=== PATIENT | female | born 1960 | race American Indian/Alaskan Native ===

== ENCOUNTER 2016-08-11 16:15 | Emergency (ER) | payer SELFPAY ==
[2016-08-11 17:23] LABS: Basophils % (Auto) 0.5 % (0.0-1.8); Eosinophils % (Auto) 3.4 % (0.0-4.3); Hematocrit 39.3 % (30.3-42.9); Hemoglobin 12.6 gm/dl (10.1-14.3); Mean Corpuscular HGB Conc 32 % (30-34); Mean Corpuscular Hemoglobin 28 pg (28-32); Mean Corpuscular Volume 87 fl (79-97); Platelet Count 289 K/mm3 (140-440); Red Blood Count 4.51 M/mm3 (3.65-5.03); Red Cell Distribution Width 15.2 % (13.2-15.2); White Blood Count 5.8 K/mm3 (4.5-11.0)
[2016-08-11 17:39] LABS: BUN/Creatinine Ratio 8.75; Blood Urea Nitrogen 7 mg/dL (7-17); Carbon Dioxide 28 mmol/L (22-30); Glucose 69 mg/dL (65-100)
[2016-08-11 17:40] LABS: Anion Gap 16 mmol/L; Chloride 101.7 mmol/L (98-107); Potassium 3.9 mmol/L (3.6-5.0); Sodium 142 mmol/L (137-145)
[2016-08-11] MEDS ORDERED: NACL 0.9% 1000 ML 1,000 ML IV ONE (22:39)
[2016-08-11] MEDS ORDERED: MORPHINE IV ONE (22:40)
[2016-08-11] MEDS ORDERED: ZOFRAN IV ONE (22:40)
--- NOTE | 2016-08-11 23:14 | Cat Scan Report ---
FINAL REPORT EXAM: CT ABDOMEN PELVIS WO CON HISTORY: GALLSTONE OR KIDNEY STONE EVALUATION TECHNIQUE: CT images obtained through the Abdomen and Pelvis without contrast. Transaxial,coronal and sagittal reformats are provided. PRIORS: None. FINDINGS: Imaged intrathoracic contents are unremarkable. Right lower kidney nonobstructing 3 millimeter stone. Kidneys are normal in size, axis and position. No hydronephrosis or other nephrolithiasis. The ureters are normal in course and caliber. No stones are seen within the urinary bladder. The liver, gallbladder, pancreas, spleen, and adrenal glands demonstrate an unremarkable noncontrast appearance. Hollow enteric organs are normal in course and caliber. Appendix is normal in caliber and without surrounding edema or inflammatory stranding.. No intra-abdominal free air/fluid or lymphadenopathy. Aorta is normal in course and caliber. Anteverted uterus. Trace free fluid in the pelvis. Right adnexal 4 centimeter lesion with layering hyperdense material on axial series 2, image 298. Left-sided tubal ligation clip. Superficial soft tissues are unremarkable. No acute or aggressive appearing skeletal findings. IMPRESSION: No CT evidence of obstructive urolithiasis or other acute intra-abdominal findings.
[2016-08-11 23:48] LABS: Alanine Aminotransferase 22 units/L (7-56); Albumin 3.9 g/dL (3.9-5); Albumin/Globulin Ratio 1.2 %; Alkaline Phosphatase 74 units/L (35-129); Bilirubin,Total < 0.20 mg/dL (0.1-1.2); Lipase 21 units/L (13-60); Total Protein 7.2 g/dL (6.3-8.2)
[2016-08-11 23:49] LABS: Bilirubin,Direct < 0.2 mg/dL (0-0.2)
[2016-08-12] MEDS ORDERED: MORPHINE IM ONE (00:56)
[2016-08-12] MEDS ORDERED: ZOFRAN ODT PO ONE (00:56)
[2016-08-12] MEDS ORDERED: BENTYL IM ONE (01:07)
[2016-08-12] MEDS ORDERED: TORADOL IV ONE (01:07)
[2016-08-12 01:27] LABS: Bacteria,Urine 1+ /HPF (Negative); Bilirubin,Urine NEG (Negative); Blood,Urine NEG (Negative); Ketones,Urine NEG (Negative); Leukocyte Esterase,Urine TR (Negative); Mucus,Urine FEW /HPF; Nitrite,Urine NEG (Negative); Protein,Urine <15 mg/dL mg/dL (Negative); Urobilinogen,Urine < 2.0 mg/dL (<2.0)
[2016-08-12 01:57] VITALS: BP 95/51
--- NOTE | 2016-08-12 02:05 | Emergency Department Report ---
ED Abdominal Pain HPI - General Chief Complaint: Chest Pain Stated Complaint: RT SIDE PAIN Time Seen by Provider: 08/11/16 22:38 Source: patient Mode of arrival: Ambulatory Limitations: No Limitations - History of Present Illness Initial Comments: 55-year-old female with no past medical history presenting to the emergency department complaining of abdominal pain. Onset of pain started several days prior. Patient denies any inciting factors. Patient states pain is located in the right upper abdomen/flank area. Pain radiates to right flank. Pain is worse with movement, improves with rest. Patient denies chest pain that was noted in nursing triage note. Patient denies fevers/chills, shortness of breath , dyspnea on exertion, bloody stools. Patient endorses nausea and denies vomiting. Patient states she was diagnosed with kidney stones recently and the pain is consistent with previous diagnosis. Denies urinary symptoms. MD Complaint: abdominal pain, flank pain (right ) -: Gradual Radiation: RUQ, R flank Severity scale (0 -10): 8 Quality: cramping Consistency: intermittent Improves With: rest Worsens With: movement Associated Symptoms: nausea. denies: vomiting, diarrhea, constipation, hematemesis, hematochezia, melena, hematuria, anorexia, syncope - Related Data Previous Rx's Medication Instructions Recorded Last Taken Type Clindamycin [Clindamycin CAP] 300 mg PO Q8H #20 cap 02/05/16 Unknown Rx HYDROcodone/APAP 5-325 [[place] 1 each PO Q6HR PRN #20 tablet 02/05/16 Unknown Rx 5-325 mg TAB] Dicyclomine [Bentyl] 20 mg PO QID #30 bottle 08/12/16 Unknown Rx HYDROcodone/APAP 5-325 [[place] 1 each PO Q6HR PRN #15 tablet 08/12/16 Unknown Rx 5/325] Ondansetron [Zofran Odt] 4 mg PO Q8HR #20 tab.rapdis 08/12/16 Unknown Rx Allergies Allergy/AdvReac Type Severity Reaction Status Date / Time No Known Allergies Allergy Verified 08/11/16 16:39 ED Review of Systems ROS: Stated complaint: RT SIDE PAIN Other details as noted in HPI Constitutional: denies: chills, fever Eyes: denies: eye pain, eye discharge, vision change ENT: denies: ear pain, throat pain Respiratory: denies: cough, shortness of breath, wheezing Cardiovascular: denies: chest pain, palpitations Endocrine: no symptoms reported Gastrointestinal: abdominal pain, nausea. denies: vomiting, diarrhea, constipation, hematemesis Genitourinary: denies: urgency, dysuria, discharge Musculoskeletal: denies: back pain, joint swelling, arthralgia Skin: denies: rash, lesions Neurological: denies: headache, weakness, paresthesias Psychiatric: denies: anxiety, depression Hematological/Lymphatic: denies: easy bleeding, easy bruising ED Past Medical Hx - Past Medical History Additional medical history: Kidney stone - Surgical History Past Surgical History?: Yes Hx Breast Surgery: Yes (BREAST AUGMENTATION) Additional Surgical History: RIGHT OVARIAN CYST REMOVED. SINUS SURGERY - Social History Smoking Status: Never Smoker Substance Use Type: None - Medications Home Medications: Home Medications Medication Instructions Recorded Confirmed Last Taken Type Clindamycin [Clindamycin CAP] 300 mg PO Q8H #20 cap 02/05/16 Unknown Rx HYDROcodone/APAP 5-325 [[place] 1 each PO Q6HR PRN #20 tablet 02/05/16 Unknown Rx 5-325 mg TAB] Dicyclomine [Bentyl] 20 mg PO QID #30 bottle 08/12/16 Unknown Rx HYDROcodone/APAP 5-325 [[place] 1 each PO Q6HR PRN #15 tablet 08/12/16 Unknown Rx 5/325] Ondansetron [Zofran Odt] 4 mg PO Q8HR #20 tab.rapdis 08/12/16 Unknown Rx ED Physical Exam - General Limitations: No Limitations General appearance: alert, in no apparent distress - Head Head exam: Present: atraumatic, normocephalic - Eye Eye exam: Present: normal appearance - ENT ENT exam: Present: mucous membranes moist - Neck Neck exam: Present: normal inspection - Respiratory Respiratory exam: Present: normal lung sounds bilaterally. Absent: respiratory distress - Cardiovascular Cardiovascular Exam: Present: regular rate, normal rhythm. Absent: systolic murmur, diastolic murmur, rubs, gallop - GI/Abdominal GI/Abdominal exam: Present: soft, tenderness (mild right upper quadrant tenderness ), normal bowel sounds, other (no flank tenderness.). Absent: distended, guarding, rebound - Extremities Exam Extremities exam: Present: normal inspection - Back Exam Back exam: Present: normal inspection - Neurological Exam Neurological exam: Present: alert, oriented X3 - Psychiatric Psychiatric exam: Present: normal affect, normal mood - Skin Skin exam: Present: warm, dry, intact, normal color. Absent: rash ED Course Vital Signs 08/11/16 08/11/16 08/11/16 16:39 21:26 21:30 Temperature 98.5 F Pulse Rate 87 82 88 Respiratory 20 19 Rate Blood Pressure 127/78 131/77 117/69 O2 Sat by Pulse 100 99 Oximetry 08/11/16 08/11/16 08/11/16 21:40 21:50 21:59 Temperature Pulse Rate 78 92 H Respiratory 24 29 H 18 Rate Blood Pressure 117/69 120/79 O2 Sat by Pulse 99 100 100 Oximetry 08/11/16 08/11/16 08/11/16 22:00 22:10 22:20 Temperature Pulse Rate 81 82 84 Respiratory 30 H 19 13 Rate Blood Pressure 122/72 122/72 110/79 O2 Sat by Pulse 99 98 100 Oximetry 08/11/16 08/11/16 08/11/16 22:30 23:14 23:20 Temperature Pulse Rate 81 81 78 Respiratory 17 15 19 Rate Blood Pressure 112/91 117/75 117/75 O2 Sat by Pulse 100 98 99 Oximetry 08/11/16 08/11/16 08/11/16 23:22 23:30 23:40 Temperature Pulse Rate 82 82 80 Respiratory 14 17 18 Rate Blood Pressure 117/75 117/75 122/83 O2 Sat by Pulse 100 98 98 Oximetry 08/11/16 08/12/16 08/12/16 23:50 00:00 00:10 Temperature Pulse Rate 86 80 Respiratory 15 17 Rate Blood Pressure 114/63 110/71 110/71 O2 Sat by Pulse 97 97 95 Oximetry 08/12/16 08/12/16 08/12/16 00:20 00:30 00:40 Temperature Pulse Rate 77 78 Respiratory 15 14 Rate Blood Pressure 99/53 96/53 96/53 O2 Sat by Pulse 95 97 97 Oximetry 08/12/16 00:50 Temperature Pulse Rate 76 Respiratory 12 Rate Blood Pressure 95/51 O2 Sat by Pulse 96 Oximetry - Reevaluation(s) Reevaluation #1: 08/12/16 00:09 pt resting, no signs of distress ED Medical Decision Making - Lab Data Result diagrams: 08/11/16 17:06 08/11/16 17:06 - EKG Data -: EKG Interpreted by Me EKG shows normal: sinus rhythm (81), axis (upright), intervals (normal qrs, qtc) Rate: normal (81) - EKG Data When compared to previous EKG there are: previous EKG unavailable Interpretation: normal EKG - Radiology Data interpreted by me: Final impression no evidence of obstructive kidney stone or other acute intra- abdominal findings. Radiology Dr. KARMEN Ford - Medical Decision Making Patient states her symptoms have improved and she stable discharge home. Repeat abdominal exam soft nontender. Patient is tolerating oral liquids in the ED. I have low suspicion for: gallstones, choleycstits, nephritis, UTI, AAA Critical Care Time: No Critical care attestation.: If time is entered above; I have spent that time in minutes in the direct care of this critically ill patient, excluding procedure time. ED Disposition Clinical Impression: Right upper quadrant abdominal pain Disposition: - TO HOME OR SELFCARE Is pt being admited?: No Does the pt Need Aspirin: No Condition: Stable Instructions: Acute Abdominal Pain (ED) Prescriptions: Dicyclomine [Bentyl] 20 mg PO QID #30 bottle HYDROcodone/APAP 5-325 [[place] 5/325] 1 each PO Q6HR PRN #15 tablet PRN Reason: Pain Ondansetron [Zofran Odt] 4 mg PO Q8HR #20 tab.rapdis Referrals: PRIMARY CARE, [Primary Care Provider] - 3-5 Days CLARISSA LLOYD MD, PHD [Staff Physician] - 2-3 Days JOSE PICKERING MD [Staff Physician] - 3-5 Days Forms: Work/School Release Form(ED)
== END 2016-08-12 02:22 | disposition home or self-care (01) ==
LOC: ED 16:15
DX: R10.11 Right upper quadrant pain (principal)
CPT/HCPCS: 36415; 74176; 80048; 80074; 81001; 83690; 84484; 85025; 93005; 93010; 96361; 96374; 96375; 99285; J1885; J2270; J2405; J7030; Q0162

== ENCOUNTER 2019-05-20 18:14 | Emergency (ER) | payer SELFPAY ==
[2019-05-20 18:50] VITALS: BP 140/80
[2019-05-20 18:56] LABS: Basophils # (Auto) 0.1 K/mm3 (0.0-0.1); Basophils % (Auto) 0.8 % (0.0-1.8); Eosinophils # (Auto) 0.1 K/mm3 (0.0-0.4); Eosinophils % (Auto) 1.3 % (0.0-4.3); Hematocrit 39.6 % (30.3-42.9); Hemoglobin 13.2 gm/dl (10.1-14.3); Lymphocytes # (Auto) 1.9 K/mm3 (1.2-5.4); Lymphocytes % (Auto) 26.3 % (13.4-35.0); Mean Corpuscular HGB Conc 33 % (30-34); Mean Corpuscular Volume 85 fl (79-97); Monocytes # (Auto) 0.3 K/mm3 (0.0-0.8); Monocytes % (Auto) 4.1 % (0.0-7.3); Platelet Count 262 K/mm3 (140-440); Red Blood Count 4.64 M/mm3 (3.65-5.03)
[2019-05-20 19:18] LABS: Alanine Aminotransferase 18 units/L (7-56); Albumin 4.5 g/dL (3.9-5); BUN/Creatinine Ratio 16; Blood Urea Nitrogen 11 mg/dL (7-17); Calcium 9.3 mg/dL (8.4-10.2); Hemolysis Index 13
[2019-05-20] MEDS ORDERED: ONDANSETRON 4 MG/2 ML INJ IV ONE (19:24)
[2019-05-20] MEDS ORDERED: MORPHINE 4 MG/1 ML INJ IV ONE (19:24)
[2019-05-20] MEDS ORDERED: SODIUM CHLORIDE 0.9% 1000 ML 1,000 ML IV ONE (19:24)
--- NOTE | 2019-05-20 19:43 | Emergency Department Report ---
ED Abdominal Pain HPI - General Chief Complaint: Urogenital-Female Stated Complaint: LOWER BACK PAIN Time Seen by Provider: 05/20/19 18:57 Source: patient Mode of arrival: Ambulatory Limitations: No Limitations - History of Present Illness Initial Comments: Patient is a 58-year-old female who presents the emergency room with complaints of right flank pain and right lower back pain that initially began 2 weeks ago but worsened just prior to arrival. She states that she feels an intermittent sharp stabbing pain. Patient states that she went to the emergency room at [facility] 8 days ago and was diagnosed with kidney stones and constipation. She states that she saw a GI doctor and is scheduled to have a colonoscopy in June. Patient states that she took a muscle relaxer today and a [place] but continued to have pain. She has associated nausea. She denies any vomiting, diarrhea, fever, chest pain, shortness of breath. She has a past m edical history of GERD. She denies any allergies to medications. She did not see a urologist. - Related Data Previous Rx's Medication Instructions Recorded Last Taken Type Clindamycin [Clindamycin CAP] 300 mg PO Q8H #20 cap 02/05/16 Unknown Rx HYDROcodone/APAP 5-325 [[place] 1 each PO Q6HR PRN #20 tablet 02/05/16 Unknown Rx 5-325 mg TAB] Dicyclomine [Bentyl] 20 mg PO QID #30 bottle 08/12/16 Unknown Rx HYDROcodone/APAP 5-325 [[place] 1 each PO Q6HR PRN #15 tablet 08/12/16 Unknown Rx 5/325] Ondansetron [Zofran Odt] 4 mg PO Q8HR #20 tab.rapdis 08/12/16 Unknown Rx Cyclobenzaprine [Flexeril] 10 mg PO BID PRN #20 tablet 05/20/19 Unknown Rx Docusate Sodium [Colace] 100 mg PO BID PRN #20 capsule 05/20/19 Unknown Rx Ondansetron [Zofran Odt] 4 mg PO Q8HR PRN #10 tab.rapdis 05/20/19 Unknown Rx Tamsulosin [Flomax] 0.4 mg PO QDAY #7 cap 05/20/19 Unknown Rx polyethylene glycoL 3350 [Miralax 17 gm PO QDAY PRN #10 packet 05/20/19 Unknown Rx 3350] Allergies Allergy/AdvReac Type Severity Reaction Status Date / Time No Known Allergies Allergy Verified 08/11/16 16:39 ED Review of Systems ROS: Stated complaint: LOWER BACK PAIN Other details as noted in HPI Comment: All other systems reviewed and negative ED Past Medical Hx - Past Medical History Previous Medical History?: Yes Additional medical history: Kidney stone - Surgical History Past Surgical History?: Yes Hx Breast Surgery: Yes (BREAST AUGMENTATION) Additional Surgical History: RIGHT OVARIAN CYST REMOVED. SINUS SURGERY - Social History Smoking Status: Never Smoker Substance Use Type: None - Medications Home Medications: Home Medications Medication Instructions Recorded Confirmed Last Taken Type Clindamycin [Clindamycin CAP] 300 mg PO Q8H #20 cap 02/05/16 Unknown Rx HYDROcodone/APAP 5-325 [[place] 1 each PO Q6HR PRN #20 tablet 02/05/16 Unknown Rx 5-325 mg TAB] Dicyclomine [Bentyl] 20 mg PO QID #30 bottle 08/12/16 Unknown Rx HYDROcodone/APAP 5-325 [[place] 1 each PO Q6HR PRN #15 tablet 08/12/16 Unknown Rx 5/325] Ondansetron [Zofran Odt] 4 mg PO Q8HR #20 tab.rapdis 08/12/16 Unknown Rx Cyclobenzaprine [Flexeril] 10 mg PO BID PRN #20 tablet 05/20/19 Unknown Rx Docusate Sodium [Colace] 100 mg PO BID PRN #20 capsule 05/20/19 Unknown Rx Ondansetron [Zofran Odt] 4 mg PO Q8HR PRN #10 tab.rapdis 05/20/19 Unknown Rx Tamsulosin [Flomax] 0.4 mg PO QDAY #7 cap 05/20/19 Unknown Rx polyethylene glycoL 3350 [Miralax 17 gm PO QDAY PRN #10 packet 05/20/19 Unknown Rx 3350] ED Physical Exam - General Limitations: No Limitations General appearance: alert, in no apparent distress - Head Head exam: Present: atraumatic, normocephalic - Eye Eye exam: Present: normal appearance - ENT ENT exam: Present: mucous membranes moist - Respiratory Respiratory exam: Present: normal lung sounds bilaterally. Absent: respiratory distress, wheezes, rales, rhonchi, chest wall tenderness, accessory muscle use, decreased breath sounds, prolonged expiratory - Cardiovascular Cardiovascular Exam: Present: regular rate, normal rhythm, normal heart sounds. Absent: systolic murmur, diastolic murmur, rubs, gallop - GI/Abdominal GI/Abdominal exam: Present: soft, normal bowel sounds. Absent: distended, te nderness, guarding, rebound, rigid - Back Exam Back exam: Present: CVA tenderness (R). Absent: CVA tenderness (L) - Neurological Exam Neurological exam: Present: alert, oriented X3 - Psychiatric Psychiatric exam: Present: normal affect, normal mood - Skin Skin exam: Present: warm, dry, intact ED Course Vital Signs 05/20/19 05/20/19 18:25 19:51 Temperature 98.2 F Pulse Rate 89 Respiratory 18 18 Rate Blood Pressure 140/80 O2 Sat by Pulse 98 Oximetry ED Medical Decision Making - Lab Data Result diagrams: 05/20/19 18:47 05/20/19 18:47 Lab Results 05/20/19 05/20/19 05/20/19 Range/Units 18:47 18:47 19:42 WBC 7.4 (4.5-11.0) K/mm3 RBC 4.64 (3.65-5.03) M/mm3 Hgb 13.2 (10.1-14.3) gm/dl Hct 39.6 (30.3-42.9) % MCV 85 (79-97) fl MCH 28 (28-32) pg MCHC 33 (30-34) % RDW 16.0 H (13.2-15.2) % Plt Count 262 (140-440) K/mm3 Lymph % (Auto) 26.3 (13.4-35.0) % [place] % (Auto) 4.1 (0.0-7.3) % Eos % (Auto) 1.3 (0.0-4.3) % Baso % (Auto) 0.8 (0.0-1.8) % Lymph # 1.9 (1.2-5.4) K/mm3 [place] # 0.3 (0.0-0.8) K/mm3 Eos # 0.1 (0.0-0.4) K/mm3 Baso # 0.1 (0.0-0.1) K/mm3 Seg Neutrophils % 67.5 (40.0-70.0) % Seg Neutrophils # 5.0 (1.8-7.7) K/mm3 Sodium 136 L (137-145) mmol/L Potassium 3.9 (3.6-5.0) mmol/L Chloride 97.8 L (98-107) mmol/L Carbon Dioxide 22 (22-30) mmol/L Anion Gap 20 mmol/L BUN 11 (7-17) mg/dL Creatinine 0.7 (0.7-1.2) mg/dL Estimated GFR > 60 ml/min BUN/Creatinine Ratio 16 % Glucose 92 (65-100) mg/dL Calcium 9.3 (8.4-10.2) mg/dL Total Bilirubin 0.20 (0.1-1.2) mg/dL AST 17 (5-40) units/L ALT 18 (7-56) units/L Alkaline Phosphatase 82 (35-129) units/L Total Protein 7.9 (6.3-8.2) g/dL Albumin 4.5 (3.9-5) g/dL Albumin/Globulin Ratio 1.3 % Urine Color Straw (Yellow) Urine Turbidity Clear (Clear) Urine pH 5.0 (5.0-7.0) Ur Specific [place] 1.016 (1.003-1.030) Urine Protein <15 mg/dl (Negative) mg/dL Urine Glucose (UA) Neg (Negative) mg/dL Urine Ketones Neg (Negative) mg/dL Urine Blood Neg (Negative) Urine Nitrite Neg (Negative) Ur Reducing Substances Not Reportable Urine Bilirubin Neg (Negative) Urine Ictotest Not Reportable Urine Urobilinogen < 2.0 (<2.0) mg/dL Ur Leukocyte Esterase Neg (Negative) Urine WBC (Auto) 1.0 (0.0-6.0) /HPF Urine RBC (Auto) 1.0 (0.0-6.0) /HPF - Radiology Data Radiology results: report reviewed CT ABDOMEN AND PELVIS WITHOUT CONTRAST INDICATION / CLINICAL INFORMATION: right flank pain, hx of nephrolithiasis. TECHNIQUE: Axial CT images were obtained through the abdomen and pelvis without IV contrast. All CT scans at this location are performed using CT dose reduction for ALARA by means of automated exposure control. COMPARISON: CT scan 08/11/2016. FINDINGS: LOWER CHEST: Bibasilar atelectatic changes. Breast implants are incompletely imaged. LIVER: Unremarkable within limitations imposed by noncontrast technique. GALLBLADDER: No significant abnormality. BILE DUCTS: No significant abnormality. PANCREAS: No significant abnormality. SPLEEN: No significant abnormality. ADRENALS: No significant abnormality. RIGHT KIDNEY and URETER: 3 mm nonobstructing calculus in a lower pole calyx on series 2 image 66. No hydronephrosis or ureteral calculus. LEFT KIDNEY and URETER: No significant abnormality. STOMACH and SMALL BOWEL: No acute inflammatory changes or evidence of a high- grade obstruction. There is some mild fecalization at the terminal ileum. COLON: Mild diverticulosis. Elongated colon with moderate to large volume of fecal material but no abnormal distention or acute inflammatory changes. APPENDIX: Normal appendix is seen. PERITONEUM: No free fluid. No free air. No fluid collection. LYMPH NODES: No adenopathy. AORTA and ARTERIES: No significant abnormality. IVC and VEINS: No significant abnormality. URINARY BLADDER: No significant abnormality. REPRODUCTIVE ORGANS: Exophytic fibroid arises from the left side of the uterine body and measures about 3 cm in greatest dimension. This is grossly unchanged. ADDITIONAL FINDINGS: None. SKELETAL SYSTEM: No significant abnormality. IMPRESSION: 1. Tiny, nonobstructing right renal calculus. No ureteral or bladder calculus. 2. Multi fibroid uterus, as seen on the previous examination and without signi ficant interval change. 3. Large volume of fecal material throughout the colon, with some visualization of the terminal ileum suggesting there may be an element of constipation/slow colonic transit. Signer Name: Dar Hdz MD Signed: 05/20/2019 7:54 PM Workstation Name: [id number] Transcribed By: DMB Dictated By: Dar Hdz MD Electronically Authenticated By: Dar Hdz MD Signed Date/Time: 05/20/191953 DD/ 45 TD/TT: - Medical Decision Making Patient is a 58-year-old female who presents the emergency room with complaints of right flank pain and right lower back pain that initially began 2 weeks ago b ut worsened just prior to arrival. She states that she feels an intermittent sharp stabbing pain. Patient states that she went to the emergency room at [facility] 8 days ago and was diagnosed with kidney stones and constipation. She states that she saw a GI doctor and is scheduled to have a colonoscopy in June. Patient states that she took a muscle relaxer today and a [place] but continued to have pain. She has associated nausea. She denies any vomiting, diarrhea, fever, chest pain, shortness of breath. She has a past medical history of GERD. She denies any allergies to medications. She did not see a urologist. Vitals are normal. On exam patient has right CVA tenderness. Labs are normal. UA is within normal limits. CT abdomen pelvis without contrast 1. Tiny, nonobstructing right renal calculus. No ureteral or bladder calculus. 2. Multi fibroid uterus, as seen on the previous examination and without significant interval change. 3. Large volume of fecal material throug hout the colon, with some visualization of the terminal ileum suggesting there may be an element of constipation/slow colonic transit. Discussed all results with patient. Patient given 1 L IV fluids, Zofran, morphine and symptoms significantly improved and she was feeling much better and ready to go home. Patient still has some [place] tablets in her pill bottle. Patient given prescription for Zofran, Flexeril, Colace, MiraLAX, tamsulosin. advised pt Please take medication as prescribed. Increase your water intake. Increase your fiber intake. Follow-up with a urologist. Follow-up with an [employer] MEDIA ASSISTANT. Follow-up with your GI doctor. Return to the emergency room for any new or worsening symptoms. Critical care attestation.: If time is entered above; I have spent that time in minutes in the direct care of this critically ill patient, excluding procedure time. ED Disposition Clinical Impression: Nephrolithiasis, Right flank pain Constipation Qualifiers: Constipation type: unspecified constipation type Qualified Code(s): K59.00 - Constipation, unspecified Uterine fibroid Qualifiers: Uterine leiomyoma location: unspecified location Qualified Code(s): D25.9 - Leiomyoma of uterus, unspecified Disposition: DC-01 TO HOME OR SELFCARE Is pt being admited?: No Does the pt Need Aspirin: No Condition: Stable Instructions: Uterine Fibroids (ED), Constipation (ED), Kidney Stones (ED), High Fiber Diet (ED) Additional Instructions: Please take medication as prescribed. Increase your water intake. Increase your fiber intake. Follow-up with a urologist. Follow-up with an LIBRARY MEDIA ASSISTANT. Follow-up with your GI doctor. Return to the emergency room for any new or worsening symptoms. Prescriptions: Docusate Sodium [Colace] 100 mg PO BID PRN #20 capsule PRN Reason: constipation Cyclobenzaprine [Flexeril] 10 mg PO BID PRN #20 tablet PRN Reason: Muscle Spasm Tamsulosin [Flomax] 0.4 mg PO QDAY #7 cap polyethylene glycoL 3350 [Miralax 3350] 17 gm PO QDAY PRN #10 packet PRN Reason: constipation Ondansetron [Zofran Odt] 4 mg PO Q8HR PRN #10 tab.rapdis PRN Reason: Nausea And Vomiting Referrals: your, GI doctor [Other] - 3-5 Days MADI FAJARDO MD [Staff Physician] - 3-5 Days LESLEE HARLEY MD [Staff Physician] - 3-5 Days Time of Disposition: 20:06 Print Language: SERBIAN
--- NOTE | 2019-05-20 19:58 | Cat Scan Report ---
CT ABDOMEN AND PELVIS WITHOUT CONTRAST INDICATION / CLINICAL INFORMATION: right flank pain, hx of nephrolithiasis. TECHNIQUE: Axial CT images were obtained through the abdomen and pelvis without IV contrast. All CT scans at [facility] location are performed using CT dose reduction for ALARA by means of automated exposure control. COMPARISON: CT scan 08/11/2016. FINDINGS: LOWER CHEST: Bibasilar atelectatic changes. Breast implants are incompletely imaged. LIVER: Unremarkable within limitations imposed by noncontrast technique. GALLBLADDER: No significant abnormality. BILE DUCTS: No significant abnormality. PANCREAS: No significant abnormality. SPLEEN: No significant abnormality. ADRENALS: No significant abnormality. RIGHT KIDNEY and URETER: 3 mm nonobstructing calculus in a lower pole calyx on series 2 image 66. No hydronephrosis or ureteral calculus. LEFT KIDNEY and URETER: No significant abnormality. STOMACH and SMALL BOWEL: No acute inflammatory changes or evidence of a high-grade obstruction. There is some mild fecalization at the terminal ileum. COLON: Mild diverticulosis. Elongated colon with moderate to large volume of fecal material but no ab normal distention or acute inflammatory changes. APPENDIX: Normal appendix is seen. PERITONEUM: No free fluid. No free air. No fluid collection. LYMPH NODES: No adenopathy. AORTA and ARTERIES: No significant abnormality. IVC and VEINS: No significant abnormality. URINARY BLADDER: No significant abnormality. REPRODUCTIVE ORGANS: Exophytic fibroid arises from the left side of the uterine body and measures abo ut 3 cm in greatest dimension. This is grossly unchanged. ADDITIONAL FINDINGS: None. SKELETAL SYSTEM: No significant abnormality. IMPRESSION: 1. Tiny, nonobstructing right renal calculus. No ureteral or bladder calculus. 2. Multi fibroid uterus, as seen on the previous examination and without significant interval change . 3. Large volume of fecal material throughout the colon, with some visualization of the terminal ileu m suggesting there may be an element of constipation/slow colonic transit. Signer Name: Dar Hdz MD Signed: 05/20/2019 7:54 PM Workstation Name: [id number]
[2019-05-20 19:59] LABS: Bilirubin,Urine NEG (Negative); Blood,Urine NEG (Negative); Color,Urine Straw (Yellow); Protein,Urine <15 mg/dL mg/dL (Negative); Urobilinogen,Urine < 2.0 mg/dL (<2.0)
== END 2019-05-20 20:30 | disposition home or self-care (01) ==
LOC: ED 18:14
DX: D25.9 Leiomyoma of uterus, unspecified (principal); K59.00 Constipation, unspecified; N20.0 Calculus of kidney; Z98.890 Other specified postprocedural states; Z79.899 Other long term (current) drug therapy
CPT/HCPCS: 36415; 74176; 80053; 81001; 85025; 96374; 96375; 99284; J2270; J2405; J7030